=== PATIENT | female | born 2000 | race African-American/Black ===

== ENCOUNTER 2024-07-25 19:00 | Observation (INO) | payer BC, SELFPAY ==
--- NOTE | ~2024-07-25 | XR_ITS ---
EXAMINATION: XR chest 2V DATE: 07/25/2024 19:29 INDICATION: Cough and chest pain. Shortness of breath. TECHNIQUE: Frontal and lateral views of the chest were obtained. COMPARISON: None. FINDINGS: There are airspace opacities in left lower lobe, consistent with pneumonia. No pleural effu marcela or pneumothorax. The heart size is normal. IMPRESSION: 1. Left lower lobe pneumonia. Reviewed, dictated and finalized at location A.
--- NOTE | 2024-07-25 19:10 | ECG_ITS ---
Test Date: 2024-07-25 19:16:54 Measurements Intervals [place] Rate: 139 P: 31 AK: 159 QRS: 46 QRSD: 82 T: 16 QT: 329 QTc: 501 Interpretive Statements SINUS TACHYCARDIA ANTERIOR MYOCARDIAL INFARCTION , OF INDETERMINATE AGE [30 ms Q WAVE IN V3/V4, OR R < 0.2 mV IN V4] No previous ECG available for comparison Electronically Signed On 07-25-2024 21:42:54 CDT by Omi Lepe M.D.
[2024-07-25 19:11] VITALS: BP 154/114; PULSE 142; RESP 16; TEMP 37; O2SAT 96
[2024-07-25 19:44] LABS: Basophils Percent Auto 0.4 % (0.2-1.2); Hematocrit 43.6 % (37.0-47.0); Hemoglobin 14.5 g/dL (12.0-15.0); Immature Granulocyte Absolute 0.04 K/mm3 (0.00-0.031); Immature Granulocyte Percent A 0.4 % (0-0.5); Lymphocytes Absolute Auto 2.05 K/mm3 (0.9-3.2); Lymphocytes Percent Auto 21.4 % (18.3-44.2); Mean Corpuscular HGB Conc 33.3 g/dl (32-36); Mean Corpuscular Volume 84.3 fl (80-100); Mean Platelet Volume 9.9 fl (7.4-10.4); Monocytes Absolute Auto 1.5 K/mm3 (0.1-0.6); Monocytes Percent Auto 15.6 % (2.6-8.5); Neutrophils Percent Auto 62.2 % (45.5-73.1); Platelet Count Result 343 k/mm3 (150-375); Red Blood Count 5.17 M/mm3 (4.2-5.4); Red Cell Distribution Width 13.2 % (11.5-14.5); White Blood Count 9.6 K/mm3 (4.5-10.0)
[2024-07-25 19:54] LABS: Alanine Aminotransferase 28 U/L (6-35); Albumin Level 4.7 g/dL (3.5-5.1); Alkaline Phosphatase 38 U/L (38-126); Anion Gap 10 mmol/L (4-12); Aspartate Amino Transferase 32 U/L (14-36); Bilirubin,Total 0.3 mg/dL (0.2-1.3); Blood Urea Nitrogen 9 mg/dL (7-17); Calcium 9.5 mg/dL (8.4-10.2); Carbon Dioxide 30 mmol/L (22-30); Chloride 97 mmol/L (98-107); Estimated CRCL calculation 72 ml/min; Estimated Glomerular Filt Rate > 60; Glucose 97 mg/dL (65-110); Lipase 53 U/L (23-300); Potassium 3.7 mmol/L (3.4-5.0); Prothrombin Time 13.9 Seconds (11.1-14.7); Sodium 137 mmol/L (137-145)
[2024-07-25 19:55] LABS: Partial Thromboplastin Time 31.6 Seconds (22.3-36.8)
[2024-07-25 20:06] LABS: Troponin I < 0.012 ng/mL (0.000-0.034)
[2024-07-25 21:47] VITALS: BP 134/97; PULSE 133; RESP 27; O2SAT 98
[2024-07-25 21:55] VITALS: PULSE 134; RESP 29; O2SAT 97
[2024-07-25 22:01] VITALS: BP 143/96; PULSE 128; RESP 27; O2SAT 99
[2024-07-25 22:05] VITALS: O2SAT 99
[2024-07-25] MEDS: SODIUM CHLORIDE 0.9% IV 1,000 ML 999 ML IV CONT (22:06)
[2024-07-25] MEDS: Please add drug allergy info to patient profile. 1 EACH XX (22:06)
[2024-07-25] MEDS: BENZONATATE 100 MG CAPSULE 200 MG PO (22:06)
--- NOTE | 2024-07-25 22:30 | ECG_ITS ---
Test Date: 2024-07-25 22:36:50 Measurements Intervals [place] Rate: 119 P: 30 MD: 181 QRS: 15 QRSD: 82 T: 10 QT: 422 QTc: 595 Interpretive Statements SINUS TACHYCARDIA LEFT ATRIAL ABNORMALITY PROLONGED QT INTERVAL ABNORMAL RHYTHM ECG Compared to ECG 07/25/2024 19:16:54 Myocardial infarct finding no longer present Electronically Signed On 07-26-2024 12:01:42 CDT by Omi Lepe M.D.
[2024-07-25 22:31] VITALS: BP 145/98; PULSE 125; RESP 38; TEMP 38; O2SAT 100
[2024-07-25 23:04] LABS: Troponin I < 0.012 ng/mL (0.000-0.034)
--- NOTE | 2024-07-25 23:40 | ED.GENADULT ---
HPI - General Adult General Chief complaint: Chest Pain Stated complaint: chest pain, covid on 07/10 Time Seen by Provider: 07/25/24 21:48 History of Present Illness HPI narrative: Patient is a 21-year-old female who presents emergency department with chief complaint of chest pain and cough. The patient reports that she had COVID on the 10 of July patient reports that she was doing better symptoms have essentially resolved in last 2 days she started having a cough that was productive of phlegm the patient reports that a since she has felt some heart strain receive has not been eating and drinking very much and reports she has had a fever. Related Data Allergies Allergy/AdvReac Type Severity Reaction Status Date / Time oxycodone Allergy Anaphylaxis Verified 07/25/24 21:46 Review of Systems Review of Systems: A 10 system review of systems was completed on the patient and is negative except for what is stated in the HPI. Nursing and ancillary documentation was reviewed. Exam Narrative: GENERAL: Well-appearing, well-nourished, and in no acute distress. HEAD: Normocephalic, atraumatic. EYES: PERRLA and EOMI. ENT: Nares clear, no rhinorrhea or epistaxis. Mucous membranes moist. NECK: Supple. CHEST: Clear to auscultation. No respiratory distress. HEART: Tachycardic rate and rhythm. No murmur heard. Normal peripheral pulses. ABDOMEN: Soft, nontender, nondistended, normal active bowel sounds. EXTREMITIES: Normal range of motion. No edema. SKIN: Warm, dry, no rash. NEURO: No focal deficits. Alert and oriented x3. PSYCH: Normal mood and affect. Course Vital Signs Vital signs: Vital Signs Temperature 37.0 C 07/25/24 19:11 Pulse Rate 142 H 07/25/24 19:11 Respiratory Rate 16 07/25/24 19:11 Blood Pressure 154/114 H 07/25/24 19:11 Pulse Oximetry 96 07/25/24 19:11 Oxygen Delivery Room Air 07/25/24 19:11 Temperature 38.0 C H 07/25/24 22:31 Pulse Rate 125 H 07/25/24 22:31 Respiratory Rate 38 H 07/25/24 22:31 Blood Pressure 145/98 H 07/25/24 22:31 Pulse Oximetry 100 07/25/24 22:31 Oxygen Delivery Room Air 07/25/24 22:05 Medical Decision Making [facility] Narrative Medical decision making narrative: Differential diagnosis includes pneumonia, electrolyte abnormality, dehydration Patient is initial EKG showed no acute ischemic changes it shows sinus tachycardia. Chest x-ray showed left lower lobe infiltrate Laboratory studies showed normal CBC CMP showed no significant abnormalities troponin was 0 hour and 3 hour The patient received fluid resuscitation the emergency department and has been still persistently tachycardic with heart rate 120s. Patient started on Rocephin and Zithromax blood cultures were obtained and patient will be admitted for observation. Vital Signs Vital Signs: Vital Signs Temperature 37.0 C 07/25/24 19:11 Pulse Rate 142 H 07/25/24 19:11 Respiratory Rate 16 07/25/24 19:11 Blood Pressure 154/114 H 07/25/24 19:11 Pulse Oximetry 96 07/25/24 19:11 Oxygen Delivery Room Air 07/25/24 19:11 Temperature 38.0 C H 07/25/24 22:31 Pulse Rate 125 H 07/25/24 22:31 Respiratory Rate 38 H 07/25/24 22:31 Blood Pressure 145/98 H 07/25/24 22:31 Pulse Oximetry 100 07/25/24 22:31 Oxygen Delivery Room Air 07/25/24 22:05 Lab Data 07/25/24 19:37 07/25/24 19:37 Labs: Lab Results 07/25/24 07/25/24 Range/Units 19:37 22:37 WBC 9.6 (4.5-10.0) K/mm3 RBC 5.17 (4.2-5.4) M/mm3 Hgb 14.5 (12.0-15.0) g/dL Hct 43.6 (37.0-47.0) % MCV 84.3 (80-100) fl MCH 28.0 (26-34) pg MCHC 33.3 (32-36) g/dl RDW 13.2 (11.5-14.5) % Plt Count 343 (150-375) k/mm3 MPV 9.9 (7.4-10.4) fl Immature Gran % (Auto) 0.4 (0-0.5) % Neut % (Auto) 62.2 (45.5-73.1) % Lymph % (Auto) 21.4 (18.3-44.2) % [place] % (Auto) 15.6 H (2.6-8.5) % Eos % (Auto) 0.0 (0-4.4) % Baso % (Au
--- NOTE | 2024-07-25 23:47 | PM.IMHP ---
H&P: HPI History of Present Illness Date/Time: 07/25/24 23:47 Chief Complaint: Cough, fever chills, shortness breast Narrative: Patient is a 21-year-old female with recent history of COVID infection diagnosed on July 10 present ED with a chief complaint of cough, fever and chills and shortness of breath, that started about 2 days ago. Patient has a worsening cough today patient also developed general weakness. Patient also has chest pain with deep breath and cough. Patient had nausea vomiting yesterday. Denies diarrhea. Patient has some headache, denies photophobia, vision change. Patient came to ED for evaluation. Upon arrival in the ED, patient was found have fever 100.4, tachycardia 125, tachypnea 138, pulse ox 99 on room air, white blood cell 9600, neutrophil left shift, 15.6%. Troponin negative. EKG shows sinus rhythm, tachycardia 119, no specific ST or T-wave changes. X-ray showed left lower lobe pneumonia. Patient received antibiotics in the ED. we admit patient for further evaluation treatment Review of Systems Review of Systems: ROS negative except above PMFSH Social History Social History Smoking status: Never smoker Alcohol intake: current Drinks per week: 1 Substance use: never Substance use type: does not use Do You Feel Safe in your Home?: Yes Lack of Transportation: No Lack of Food: Never True Current Housing: I Have Housing Concerned About Future Housing: No Difficulty Paying Gas/Electric Bills: No Difficulty Paying for Meds: No Currently Unemployed: No Education: Associate Degree Difficulty w/ Childcare or Family Care: No Spiritual care concerns: No Meds Home Medications and Allergies Home Medications Medication Instructions Recorded Confirmed Type berberine chloride 500 mg capsule 500 mg PO BID 07/26/24 07/26/24 History cholecalciferol (vitamin D3) 125 125 mcg PO DAILY 07/26/24 07/26/24 History mcg (5,000 unit) tablet (Vitamin D3) norgestimate 0.25 mg-ethinyl 1 tablet PO DAILY 07/26/24 07/26/24 History estradiol 35 mcg tablet (Sprintec (28)) Allergies Allergy/AdvReac Type Severity Reaction Status Date / Time oxycodone Allergy Anaphylaxis Verified 07/25/24 21:46 Vital Signs Vital Signs - 24 hr 07/25/24 19:11 07/25/24 21:44 07/25/24 21:47 Temperature 98.6 F Pulse Rate 142 H 133 H Respiratory Rate 16 27 H Blood Pressure 154/114 H 134/97 H Pulse Oximetry 96 98 Oxygen Delivery Room Air Room Air 07/25/24 22:01 07/25/24 22:05 07/25/24 21:55 Temperature Pulse Rate 128 H 134 H Respiratory Rate 29 H Blood Pressure Pulse Oximetry 99 97 Oxygen Delivery Room Air 07/25/24 22:01 07/25/24 22:31 Temperature 100.4 F H Pulse Rate 125 H Respiratory Rate 27 H 38 H Blood Pressure 143/96 H 145/98 H Pulse Oximetry 99 100 Oxygen Delivery Exam Narrative: GENERAL: Pleasant, in no acute distress. Well-nourished. - EYES: EOMI. Anicteric. - HENT: Moist mucous membranes. - LUNGS: Clear to auscultation bilaterally, tachypnea, coarse breath sound neb lower based - CARDIOVASCULAR: Regular rate and rhythm. No murmur. No JVD. Tachycardia - ABDOMEN: Soft, non-tender and non-distended. No palpable masses. - EXTREMITIES: No edema. Peripheral pulses 2+. Non-tender. - NEUROLOGIC: No focal neurological deficits. CN II-XII grossly intact. - PSYCHIATRIC: Awake, Alert and oriented x 3. Appropriate mood and affect. - SKIN: No rashes or lesions. Warm. - LYMPH: No cervical lymphadenopathy. H&P: Results Labs Labs: Short CBC 07/25/24 Range/Units 19:37 WBC 9.6 (4.5-10.0) K/mm3 Hgb 14.5 (12.0-15.0) g/dL Hct 43.6 (37.0-47.0) % Plt Count 343 (150-375) k/mm3 [facility] 07/25/24 19:37 Sodium 137 Potassium 3.7 Chloride 97 L Carbon Dioxide 30 BUN 9 Creatinine 1.00 Glucose 97 Calcium 9.5 Cardiac Enzymes
[2024-07-25] MEDS: ACETAMINOPHEN 325 MG TABLET 650 MG PO (23:59)
[2024-07-25] MEDS: SODIUM CHLORIDE 0.9% IV 1,000 ML 125 ML IV CONT (23:59)
[2024-07-26] VITALS (15 sets, daily range): BP systolic 111–131; BP diastolic 59–85; PULSE 89–127; RESP 16–22; TEMP 36.4–37.9; O2SAT 94–99; BMI 33.8
[2024-07-26] MEDS: AZITHROMYCIN 500 MG/NS 250 ML 500 MG/250 ML BAG 250 MG IVPB (00:56)
--- NOTE | 2024-07-26 01:10 | ADMGEN ---
This patient, Andrei Levin, was admitted to Medical Room 342-01. Patient/family oriented to hospital policies and general routines including ID bracelet, bed and alarms, visiting hours, pain management, procedures, bathroom and other care routines, personal items, smoking policy, room service/diet, and visiting hours. Information on how to activate the Rapid Response Team has been discussed. Patient/Family are encouraged to report perceived risks to care and to ask questions if they do not understand what they are told or what they should do.
[2024-07-26 01:43] LABS: Troponin I < 0.012 ng/mL (0.000-0.034)
[2024-07-26] MEDS: IPRATROPIUM 0.5 MG/ALBUTEROL SULFATE 2.5 MG AMPUL.NEB 3 ML INHALATION ×2 (07:20→13:20)
[2024-07-26] MEDS: ENOXAPARIN 40 MG/0.4 ML SYRINGE SUB-Q (08:45)
[2024-07-26] MEDS: ACETAMINOPHEN 325 MG TABLET 650 MG PO (08:49)
[2024-07-26] MEDS: SODIUM CHLORIDE 0.9% IV 1,000 ML 125 ML IV CONT (08:51)
[2024-07-26 09:49] LABS: Basophils Percent Auto 0.4 % (0.2-1.2); Eosinophils Percent Auto 0.1 % (0-4.4); Hematocrit 41.4 % (37.0-47.0); Hemoglobin 13.7 g/dL (12.0-15.0); Immature Granulocyte Absolute 0.03 K/mm3 (0.00-0.031); Immature Granulocyte Percent A 0.4 % (0-0.5); Lymphocytes Absolute Auto 1.87 K/mm3 (0.9-3.2); Mean Corpuscular HGB Conc 33.1 g/dl (32-36); Mean Corpuscular Hemoglobin 28.4 pg (26-34); Mean Corpuscular Volume 85.9 fl (80-100); Monocytes Absolute Auto 1.1 K/mm3 (0.1-0.6); Monocytes Percent Auto 13.9 % (2.6-8.5); Neutrophils Absolute Auto 4.8 K/mm3 (1.3-6.7); Neutrophils Percent Auto 61.2 % (45.5-73.1); Platelet Count Result 304 k/mm3 (150-375); Red Blood Count 4.82 M/mm3 (4.2-5.4); Red Cell Distribution Width 13.3 % (11.5-14.5); White Blood Count 7.8 K/mm3 (4.5-10.0)
[2024-07-26 10:01] LABS: Lactic Acid Reflex 1.2 mmol/L (0.7-2.0)
[2024-07-26 10:02] LABS: Alanine Aminotransferase 23 U/L (6-35); Albumin Level 4.3 g/dL (3.5-5.1); Alkaline Phosphatase 39 U/L (38-126); Anion Gap 8 mmol/L (4-12); Aspartate Amino Transferase 26 U/L (14-36); Bilirubin,Total 0.4 mg/dL (0.2-1.3); Blood Urea Nitrogen 8 mg/dL (7-17); Calcium 8.5 mg/dL (8.4-10.2); Carbon Dioxide 27 mmol/L (22-30); Chloride 103 mmol/L (98-107); Estimated CRCL calculation 101 ml/min; Estimated Glomerular Filt Rate > 60; Glucose 101 mg/dL (65-110); Potassium 3.5 mmol/L (3.4-5.0); Sodium 138 mmol/L (137-145)
--- NOTE | 2024-07-26 16:12 | PM.DS ---
DS: Admitting Diagnosis Discharge Date 07/26/2024 Admitting Diagnosis Fever, and SOB. DS: Summary Hospital Course Hospital Course: Patient is a 21-year-old female with recent history of COVID infection diagnosed on July 10 present ED with a chief complaint of cough, fever and chills and shortness of breath, that started about 2 days ago. Patient has a worsening cough today patient also developed general weakness. Patient also has chest pain with deep breath and cough. Patient had nausea vomiting yesterday. Denies diarrhea. Patient has some headache, denies photophobia, vision change. Patient came to ED for evaluation. Upon arrival in the ED, patient was found have fever 100.4, tachycardia 125, tachypnea 138, pulse ox 99 on room air, white blood cell 9600, neutrophil left shift, 15.6%. Troponin negative. EKG shows sinus rhythm, tachycardia 119, no specific ST or T-wave changes. X-ray showed left lower lobe pneumonia. Patient received antibiotics in the ED. we admit patient for further evaluation treatment Patient received Rocephin and Azithromycin, and IVF vitals sign within normal limits. No leukocytosis and patient is eating and self ambulating freely. Discharged on 6 more days of Levaquin. F/u with PCP in 3-5 days Assessment and plan (1) Community acquired pneumonia: Code(s): J18.9 - Pneumonia, unspecified organism Status: Acute (2) Sepsis: Code(s): A41.9 - Sepsis, unspecified organism Status: Acute Plan Community-acquired pneumonia Patient is a cough, fever, chills, pleuritic chest pain associated with deep breath and cough, troponin negative, EKG shows sinus tachycardia X-ray shows left lower lobe pneumonia s/p Rocephin and Azithromycin. Discharged on 6 more days of Levaquin Sepsis, resolved vital signs within normal limites S/p IVf and Rocephin adn Azithromycin continue above care plan F/u wit PCP in 3-5 days Time Spent with Patient Time attestation: Total time spent providing and/or coordinating discharge services: DS: Data Data Completed and Pending Labs on day of discharge: Labs from last 24 hours 07/26/24 07/26/24 07/25/24 09:40 01:15 22:37 WBC 7.8 RBC 4.82 Hgb 13.7 Hct 41.4 MCV 85.9 MCH 28.4 MCHC 33.1 RDW 13.3 Plt Count 304 MPV 10.0 Immature Gran % (Auto) 0.4 Neut % (Auto) 61.2 Lymph % (Auto) 24.0 [place] % (Auto) 13.9 H Eos % (Auto) 0.1 Baso % (Auto) 0.4 Lymph # (Auto) 1.87 [place] # (Auto) 1.1 H Eos # (Auto) 0.0 Baso # (Auto) 0.0 Abs Immat Gran (auto) 0.03 Absolute Neuts (auto) 4.8 Absolute Nucleated RBC 0.000 Nucleated RBC % 0.0 PT INR APTT Sodium 138 Potassium 3.5 Chloride 103 Carbon Dioxide 27 Anion Gap 8 BUN 8 Creatinine 0.70 Estim Creat Clear Calc 101 Estimated GFR > 60 Glucose 101 Lactic Acid 1.2 Calcium 8.5 Magnesium 2.0 Total Bilirubin 0.4 AST 26 ALT 23 Alkaline Phosphatase 39 Troponin I < 0.012 < 0.012 Total Protein 8.0 Albumin 4.3 Lipase 07/25/24 19:37 WBC 9.6 RBC 5.17 Hgb 14.5 Hct 43.6 MCV 84.3 MCH 28.0 MCHC 33.3 RDW 13.2 Plt Count 343 MPV 9.9 Immature Gran % (Auto) 0.4 Neut % (Auto) 62.2 Lymph % (Auto) 21.4 [place] % (Auto) 15.6 H Eos % (Auto) 0.0 Baso % (Auto) 0.4 Lymph # (Auto) 2.05 [place] # (Auto) 1.5 H Eos # (Auto) 0.0 Baso # (Auto) 0.0 Abs Immat Gran (auto) 0.04 H Absolute Neuts (auto) 6.0 Absolute Nucleated RBC 0.000 Nucleated RBC % 0.0 PT 13.9 INR 1.0 APTT 31.6 Sodium 137 Potassium 3.7 Chloride 97 L Carbon Dioxide 30 Anion Gap 10 BUN 9 Creatinine 1.00 Estim Creat Clear Calc 72 Estimated GFR > 60 Glucose 97 Lactic Acid Calcium 9.5 Magnesium Total Bilirubin 0.3 AST 32 ALT 28 Alkaline Phosphatase 38 Troponin I < 0.012 Total Protein 9.0 H Albumin 4.7 Lipase 53 Discharge Lory
[2024-07-26] MEDS: INFLUENZA TRIVALENT VACCINE 45 MCG/0.5 ML SYRINGE IM (16:29)
== END 2024-07-26 16:37 | disposition home or self-care (01) ==
LOC: ANHED 23:45 → ANH3MED 07-26 16:12
PROVIDERS: Admitting Provider Hospitalist; Emergency Provider Emergency Medicine; Visit Provider Internal Medicine
DX: A41.9 Sepsis, unspecified organism (principal); J18.9 Pneumonia, unspecified organism; Z86.16 Personal history of COVID-19; Z23 Encounter for immunization
CPT/HCPCS: 36415; 71046; 80053; 83605; 83690; 83735; 84484; 85025; 85610; 85730; 87040; 90471; 90656; 93005; 94640; 96361; 96365; 96367; 96372; 99285; A9270; G0008; G0378; J0456; J0696; J1650; J7030

== ENCOUNTER 2025-04-03 22:04 | Emergency (ER) | payer SELFPAY ==
--- NOTE | ~2025-04-03 | CT_ITS ---
CT of the Abdomen and Pelvis: Indication: Abdominal pain Technique: 2.5 mm axial scans were obtained through the abdomen and pelvis following intravenous adm inistration of 100 cc of Omnipaque 350. Dose reduction technique was used on this scan by utilizing a utomated exposure control and iterative reconstruction technique. The dose-length product (DLP) was 5 96.94 mGy-cm. Findings: Scans through the lung bases are unremarkable. The liver, spleen, pancreas, gallbladder, adrenals and kidneys are within normal limits. No evidence of aortic aneurysm. No lymphadenopathy. No bowel obstruction or bowel wall thickening. There is no evidence to suggest acute appendicitis. Images through the pelvis were performed. There is prominent appearance of both ovaries versus exophy tic fibroids, measuring 4.3 cm on the right, and 4 cm anteriorly/the left. Impression: Suspected exophytic fibroid versus prominent appearance of both ovaries, as detailed above. Consider pelvic ultrasound to further evaluate. Reviewed, dictated and finalized at [facility]. Impression: Suspected exophytic fibroid versus prominent appearance of both ovaries, as det peter above. Consider pelvic ultrasound to further evaluate.
[2025-04-03 22:06] VITALS: BP 149/90; PULSE 86; RESP 16; TEMP 36.5; O2SAT 99
--- OUTSIDE RECORDS SUMMARY | 2025-04-03 22:07 | XMS_ITS | Clinical Summary ---
Author Organization [facility] Address [address] [place] [address] Care Team Providers Care Firer Tunnel Kiln Name Role Phone Jaylene Tee NP Primary Care Provider Allergies Active Allergy Reactions Criticality Noted Date Comments Oxycodone Itching,Swelling Medium 08/20/2021 Social History Tobacco Use Types Packs/Day Years Used Date Smoking Tobacco: Never Assessed Personal Safety Answer Date Recorded Getting School Help Needed Not on file 12/17 Comments Unknown Sex and Gender Information Value Date Recorded Sex Assigned at Not on file Legal Sex Female 1:08 AM [employer]ANGU[employer] PATH Gender Identity Not on file Sexual Orientation Not on file Last Filed Vital Signs Vital Sign Reading Time Taken Comments Blood Pressure 126/81 11/21/2022 1:54 PM [employer]ANGUAGE [employer] Pulse 75 11/21/2022 1:54 PM [employer] Temperature 37 C (98.6 F) 11/21/2022 12:07 PM [employer]ANGU[employer] Respiratory Rate 18 11/21/2022 1:54 PM [employer] Oxygen Saturation 98% 11/21/2022 1:54 PM [employer]ANG[employer] Inhaled Oxygen Concentration - - Weight 77.5 kg (170 lb 13.7 oz) 023 12:07 PM [employer] Height 152.4 cm (5') 11/21/2022 12:07 PM [employer] Body Mass Index 33.37 11/21/2022 12:07 PM [employer]ANGU[employer] PATH Plan of Treatment Health Maintenance Due Date Last Done Comments Cervical Cancer Screening 2001 Depression Screening 2001 Hepatitis C Screening 2001 DTaP/Tdap/Td Vaccine (1 - Tdap) 2012 Varicella Vaccines (1 of 2 - 13+ 2-dose series) 2014 HPV Vaccines (1 - 3-dose series) 2016 Meningococcal B Vaccine (1 o f 2 - Standard) 2017 Hepatitis B Screening 2019 Regular Well Visit/Exam 18-64 2019 Influenza Vaccine (Season Ended) 2025 Pneumococcal vaccine <65 Aged Out No longer eligible based on patient's age to complete this topic [place] [address] [employer] Address: [facility] [address] [place] [address] [facility] Care Teams Firer Tunnel Kiln Relationship Specialty Start Date End Date Jaylene Tee NP PCP - General Family Medicine 11/21/22
--- OUTSIDE RECORDS SUMMARY | 2025-04-03 22:07 | XMS_ITS | Referral Summary ---
Author Organization [facility] Address [address] [place] [address] Care Team Providers Care Quarry Boss Name Role Phone Jaylene Tee NP Primary [...] on file Legal Sex Female 1:08 AM [employer] Gender Identity Not on file Sexual Orientation Not on file Last Filed Vital Signs Vital Sign Reading Time Taken Comments Blood Pressure 126/81 11/21/2022 1:54 PM [employer] OP Pulse 75 11/21/2022 1:54 PM [employer] OP Temperature 37 C (98.6 F) 11/21/2022 12:07 PM [employer] OP Respiratory Rate 18 11/21/2022 1:54 PM [employer] OP Oxygen Saturation 98% 11/21/2022 1:54 PM [employer] OP Inhaled Oxygen Concentration - - Weight 77.5 kg (170 lb 13.7 oz) 023 12:07 PM [employer]ET[employer] OP Height 152.4 cm (5') 11/21/2022 12:07 PM [employer]ING [employer] OP Body Mass Index 33.37 11/21/2022 12:07 PM [employer]ETING [employer] OP Plan of Treatment Not on file [place] [address] [address] [facility] [employer] Address: [address] [place] [address] [place] [address] [facility] [place] [address] [facility] Care Teams Quarry Boss Relationship Specialty Start Date End Date Jaylene Tee NP PCP - General Family Medicine 11/21/22
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
--- OUTSIDE RECORDS SUMMARY | 2025-04-03 22:55 | XMS_ITS | Clinical Summary ---
Author Organization [facility] Address [address] 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 Gender Identity Not on file Sexual Orientation Not on file Last Filed Vital Signs Vital Sign Reading Time Taken Comments Blood Pressure 126/81 11/21/2022 1:54 PM WHITE SHOE RAGGER Pulse 75 11/21/2022 1:54 PM WHITE SHOE RAGGER Temperature 37 C (98.6 F) 11/21/2022 12:07 PM WHITE SHOE RAGGER Respiratory Rate 18 11/21/2022 1:54 PM WHITE SHOE RAGGER Oxygen Saturation 98% 11/21/2022 1:54 PM WHITE SHOE RAGGER Inhaled Oxygen Concentration - - Weight 77.5 kg (170 lb 13.7 oz) 023 12:07 PM WHITE SHOE RAGGER Height 152.4 cm (5') 11/21/2022 12:07 PM WHITE SHOE RAGGER Body Mass Index 33.37 11/21/2022 12:07 PM WHITE SHOE RAGGER Plan of Treatment Health Maintenance Due Date [...] patient's age to complete this topic [place] [address] [place] [address] [employer] Address: [facility] [id number] [place] [address] [facility] MEDICAID [facility] Care Teams Secondary School Principal Relationship Specialty Start Date End Date Jaylene Tee NP PCP - General Family Medicine 11/21/22
--- OUTSIDE RECORDS SUMMARY | 2025-04-03 22:55 | XMS_ITS | Clinical Summary ---
Author Organization [facility] Address [address] [place] [address] Care Team Providers Care Restaurant Hourly Manager Name Role Phone Pablo Humphries MD Primary Care Provider [phone] Source Comments [facility] [employer],non-owned Affiliates and Associated Physician Practices is amultiple site organization consisting of ambulatory clinics and hospital sitesin [place], [place], [place] and [place]. This disclosure is being madepursuant to the Care Everywhere program and may not contain all information available regarding this patient. Last updated 18.[facility] [employer] Allergies No known active allergies Medications * Be aware that medications may not be up to date on this document. Alwaysverify current medications with the patient. acetaminophen (TYLENOL) 325 MG tablet Take 2 tablets by mouth every 6 hours as needed for Fever or Pain Maximum allowable Acetaminophen amount = 4 Grams (4000 mg) / 24 hours. 60 tablet 1 0 Active ibuprofen (MOTRIN) 600 MG tablet Take 1 tablet by mouth every 6 hours as needed for Pain 60 tablet 1 0 Active traMADol (ULTRAM) 50 MG tabletIndicati ons:Post-tonsi llectomy pain Take 1 tablet by mouth every 6 hours as needed for Pain 12 tablet 0 Active Active Problems No known active problems Social History Tobacco Use Types Packs/Day Years Used Date Smoking Tobacco: Never Smokeless Tobacco: Never Alcohol Use Standard Drinks/Week Comments Never 0 (1 standard drink = 0.6 oz pur e alcohol) AUDIT-C Answer Date Recorded Q1: How often do you have a drink containing alc ohol? Never 07/29/2020 Average Number of Drinks Not on file 020 Frequency of Binge Drinking Not on file 03/2020 Comments No Sex and Gender Information Value Date Recorded Sex Assigned at Not on file Legal Sex Female 11:17 AM CDT Gender Identity Not on file Sexual Orientation Not on file Last Filed Vital Signs Vital Sign Reading Time Taken Comments Blood Pressure 131/96 08/19/2020 10:45 AM CDT Pulse 88 08/19/2020 10:46 AM CDT Temperature 36.9 C (98.4 F) 08/26/2020 1:28 PM VICE PRESIDENT MEDICAL AFFAIRS Respiratory Rate 27 08/19/2020 10:46 AM CDT Oxygen Saturation 99% 08/19/2020 10:46 AM CDT Inhaled Oxygen Concentration - - Weight 70.3 kg (155 lb) 08/26/2020 1:28 PM [facility] PRES[facility] AFFAIRS Height 152.4 cm (5') 08/26/2020 1:28 PM [facility] AFFAIRS Body Mass Index 30.27 08/26/2020 1:28 PM VICE PRESIDENT [employer] AFFAIRS Plan of Treatment Health Maintenance Due Date Last Done Comments HIV SCREENING 2016 HPV VACCINE (1 - 3-dose series) 2016 CHLAMYDIA/GONORRHEA SCREENING 2017 MENINGOCOCCAL (Group B) VACC INE SHARED DECISION-MAKING (1 of 2 - Standard) 2017 HEPATITIS C SCREENING 11/09/2019 DTAP/TDAP/TD VACCINES (1 - Tdap) 2020 HEPATITIS B VACCINE (1 of 3 - 19+ 3-dose series) 2020 COVID-19 VACCINE (1 - 2023-2 5 season) 2024 DEPRESSION SCREENING 10/24/2024 INFLUENZA VACCINE (Season Ended) 2025 ZOSTER VACCINE (1 of 2) 2051 HIB VACCINE Aged Out No longer eligi ble based on patient's age to complete this topic MENINGOCOCCAL GROUPS A/C/Y/W VACCINE Aged Out No longer eligible b ased on patient's age to complete this topic PNEUMOCOCCAL VACCINE Aged Out No long er eligible based on patient's age to complete this topic Insurance [facility] Care Teams Restaurant Hourly Manager Relationship Specialty Start Date End Date Pablo Humphries MD [facility] [address] [address] PCP - General 07/24/20
--- OUTSIDE RECORDS SUMMARY | 2025-04-03 22:55 | XMS_ITS | Referral Summary ---
Author Organization [facility] Address [address] [place] [address] Care Team Providers Care Forensic Engineer Name Role Phone Jaylene Tee NP Primary [...] on file Legal Sex Female 1:08 AM HEATING PLANT SUPERINTENDENT Gender Identity Not on file Sexual Orientation Not on file Last Filed Vital Signs Vital Sign Reading Time Taken Comments Blood Pressure 126/81 11/21/2022 1:54 PM HEATING PLANT SUPERINTENDENT Pulse 75 11/21/2022 1:54 PM HEATING PLANT SUPERINTENDENT Temperature 37 C (98.6 F) 11/21/2022 12:07 PM HEATING PLANT SUPERINTENDENT Respiratory Rate 18 11/21/2022 1:54 PM HEATING PLANT SUPERINTENDENT Oxygen Saturation 98% 11/21/2022 1:54 PM HEATING PLANT SUPERINTENDENT Inhaled Oxygen Concentration - - Weight 77.5 kg (170 lb 13.7 oz) 023 12:07 PM HEATING PLANT SUPERINTENDENT Height 152.4 cm (5') 11/21/2022 12:07 PM HEATING PLANT SUPERINTENDENT Body Mass Index 33.37 11/21/2022 12:07 PM HEATING PLANT SUPERINTENDENT Plan of Treatment Not on file [place] [address] [facility] [employer] PL[employer] Address: [address] [place] [address] [place] [address] [facility] [place] [address] [facility] Care Teams Forensic Engineer Relationship Specialty Start Date End Date Jaylene Tee NP PCP - General Family Medicine 11/21/22
--- NOTE | 2025-04-04 00:11 | ECG_ITS ---
Test Date: 2025-04-04 02:09:20 Measurements Intervals [place] Rate: 78 P: 47 TN: 175 QRS: 45 QRSD: 94 T: 53 QT: 356 QTc: 407 Interpretive Statements SINUS RHYTHM WITH MARKED SINUS ARRHYTHMIA POOR R WAVE PROGRESSION BASELINE ARTIFACT- I, II, III, AVR, AVL, AVF, V1-V2 BORDERLINE ECG Compared to ECG 07/25/2024 22:36:50 HEART RATE HAS DECREASED Prolonged QT interval no longer present Electronically Signed On 04-04-2025 05:48:52 CDT by Alen Adan D.O.
[2025-04-04 00:30] LABS: Add Urine Microscopic? NO; Appearance Urine Clear (Clear); Bilirubin Urine Negative (Negative); Blood Urine Negative (Negative); Color Urine Yellow (Yellow); Glucose Urine UA Negative (Negative); Ketones Urine Negative (Negative); Leukocyte Esterase Ur Negative LEU/UL (Negative); Nitrate Urine Negative (Negative); Protein Urine Negative (Negative); Urobilinogen Urine 0.2 mg/dL (<2.0); pH Urine 7.5 (5.0-9.0)
[2025-04-04 00:31] LABS: Basophils Percent Auto 0.4 % (0.2-1.2); Eosinophils Absolute Auto 0.1 K/mm3 (0-0.3); Eosinophils Percent Auto 1.2 % (0-4.4); Hemoglobin 13.7 g/dL (12.0-15.0); Immature Granulocyte Absolute 0.01 K/mm3 (0.00-0.031); Immature Granulocyte Percent A 0.1 % (0-0.5); Lymphocytes Absolute Auto 3.89 K/mm3 (0.9-3.2); Lymphocytes Percent Auto 56.6 % (18.3-44.2); Mean Corpuscular HGB Conc 32.6 g/dl (32-36); Mean Corpuscular Hemoglobin 27.8 pg (26-34); Mean Corpuscular Volume 85.4 fl (80-100); Mean Platelet Volume 10.6 fl (7.4-10.4); Monocytes Absolute Auto 0.6 K/mm3 (0.1-0.6); Monocytes Percent Auto 8.9 % (2.6-8.5); Neutrophils Absolute Auto 2.3 K/mm3 (1.3-6.7); Neutrophils Percent Auto 32.8 % (45.5-73.1); Platelet Count Result 341 k/mm3 (150-375); Red Blood Count 4.92 M/mm3 (4.2-5.4); Red Cell Distribution Width 13.8 % (11.5-14.5); White Blood Count 6.9 K/mm3 (4.5-10.0)
[2025-04-04 00:43] LABS: Alanine Aminotransferase 27 U/L (6-35); Albumin Level 4.5 g/dL (3.5-5.1); Alkaline Phosphatase 40 U/L (38-126); Anion Gap 8 mmol/L (4-12); Aspartate Amino Transferase 29 U/L (14-36); Bilirubin,Total 0.2 mg/dL (0.2-1.3); Blood Urea Nitrogen 15 mg/dL (7-17); Calcium 9.6 mg/dL (8.4-10.2); Carbon Dioxide 28 mmol/L (22-30); Chloride 102 mmol/L (98-107); Estimated CRCL calculation 88 ml/min; Estimated Glomerular Filt Rate > 60; Glucose 102 mg/dL (65-110); Lactic Acid Reflex 0.9 mmol/L (0.7-2.0); Lipase 180 U/L (23-300); Potassium 3.6 mmol/L (3.4-5.0); Sodium 138 mmol/L (137-145); Total Protein 7.7 g/dL (6.3-8.2)
[2025-04-04 00:53] LABS: Prothrombin Time 13.6 Seconds (11.1-14.7)
[2025-04-04 00:54] LABS: Partial Thromboplastin Time 27.4 Seconds (22.3-36.8)
[2025-04-04 01:05] LABS: BEDSIDEPREGUCG Negative (Negative)
--- NOTE | 2025-04-04 01:16 | ED_ITS ---
HPI - Abdominal Pain General Chief Complaint: Abdominal Pain Stated Complaint: R abd pain with pcos cyst dx Time Seen by Provider: 04/03/25 22:33 History of Present Illness HPI narrative: Patient is a 24-year-old female who presents to the ER with sudden onset abdominal pain. She reports she was in the shower when she felt something ?pop in her right groin. Patient endorses some vaginal spotting. She is unsure when her last menstrual period was, as she is irregular. Patient endorses a history of ovarian cysts, pneumonia, sepsis, and heart attack. She reports her last bowel movement was today and it was normal for her. Patient denies any urinary burning, chest pain, urinary urgency, or recent fevers. Related Data Home Medications ?Medication ?Instructions ?Recorded ?Confirmed ?Last Taken ?Type berberine chloride 500 mg capsule 500 mg PO BID 07/26/24 07/26/24 07/25/24 History cholecalciferol (vitamin D3) 125 125 mcg PO DAILY 07/26/24 07/26/24 07/25/24 History mcg (5,000 unit) tablet (Vitamin D3) norgestimate 0.25 mg-ethinyl 1 tablet PO DAILY 07/26/24 07/26/24 07/25/24 History estradiol 0.035 mg tablet (Sprintec (28)) Allergies Allergy/AdvReac Type Severity Reaction Status Date / Time oxycodone Allergy Anaphylaxis Verified 04/03/25 22:05 Review of Systems 2 Review of Systems: All systems reviewed & are unremarkable except as noted in HPI and below PMFSH Social History Social History Smoking status: Never smoker Alcohol intake: current Drinks per week: 1 Substance use: never Substance use type: does not use Do You Feel Safe in your Home?: Yes Lack of Transportation: No Lack of Food: Never True Current Housing: I Have Housing Concerned About Future Housing: No Difficulty Paying Gas/Electric Bills: No Difficulty Paying for Meds: No Currently Unemployed: No Education: Associate Degree Difficulty w/ Childcare or Family Care: No Spiritual care concerns: No Exam 2 Narrative: GENERAL: Well appearing, well-nourished, non-toxic, in no acute distress. HEAD: Normocephalic, atraumatic. NECK: Supple. No adenopathy, no masses. RESPIRATORY: Airway patent, respirations nonlabored. Clear to auscultation bilaterally, no rales, rhonchi, wheezing. CARDIOVASCULAR: Regular rate and rhythm without murmurs, rubs, or gallops. Peripheral pulses 2+ and equal bilaterally. ABDOMINAL: Soft, tender RLQ, nondistended, no hepatosplenomegaly. Normoactive BS. MUSCULOSKELETAL: Moves all extremities. Strength/ROM intact without gross deformities. SKIN: Warm, dry, normal color. No rashes. NEURO: A&O X3. Speech clear. Cranial nerves II-XII intact. No ataxic movements. PSYCHIATRIC: Appropriate mood and affect. Normal interaction. Course Vital Signs Vital signs: Vital Signs Temperature 36.5 C 04/03/25 22:06 Pulse Rate 86 04/03/25 22:06 Respiratory Rate 16 04/03/25 22:06 Blood Pressure 149/90 H 04/03/25 22:06 Pulse Oximetry 99 04/03/25 22:06 Oxygen Delivery Room Air 04/03/25 22:06 Temperature 36.5 C 04/03/25 22:06 Pulse Rate 97 04/04/25 05:38 Respiratory Rate 16 04/04/25 05:38 Blood Pressure 137/88 04/04/25 05:38 Pulse Oximetry 97 04/04/25 05:38 Oxygen Delivery Room Air 04/03/25 22:06 MDM - Abdominal Pain MDM Narrative Medical decision making narrative: Patient is a 24-year-old female who presents to the ER with sudden onset abdominal pain. She reports she was in the shower when she felt something ?pop in her right groin. Patient endorses some vaginal spotting. She is unsure when her last menstrual period was, as she is irregular. Patient endorses a history of ovarian cysts, pneumonia, sepsis, and heart attack. She reports her last bowel movement was today and it was normal for her. Patient denies any urinary burning, chest pain, urinary urgency, or recent fevers. Labs Ordered: CBC, CMP, lactic acid, PTT, INR, lipase, UA Imaging Ordered: CT abdomen pelvis Medications Ordered: None necessary (patient refused pain medication) Results: Patient's CBC was unremarkable for any acute abnormalities. Her coags and chemistry were also negative for any acute abnormalities. Patient's urinalysis was negative for any acute abnormalities. Her lactic acid was within normal limits. Diagnosis: lower abdominal pain Patient Education/Shared MDM: Results of lab work and imaging shared with patient. She continues to decline pain medication administration. Patient strongly advised to maintain hydration status upon discharge and follow-up with her PCP as soon as possible. She will be discharged home with no new prescriptions. Strict return precautions provided. Patient verbalized understanding and is in agreement with plan. Vital signs stable at time of discharge. All questions answered. Differential Diagnosis Differential diagnosis: Likely abdominal pain, acute appendicitis, constipation, gastroenteritis and small bowel obstruction Lab Data Attestation: I reviewed the patient's lab results. 04/04/25 00:21 04/04/25 00:21 Labs: Lab Results 04/04/25 04/04/25 Range/Units 00:21 01:03 WBC 6.9 (4.5-10.0) K/mm3 RBC 4.92 (4.2-5.4) M/mm3 Hgb 13.7 (12.0-15.0) g/dL Hct 42.0 (37.0-47.0) % MCV 85.4 (80-100) fl MCH 27.8 (26-34) pg MCHC 32.6 (32-36) g/dl RDW 13.8 (11.5-14.5) % Plt Count 341 (150-375) k/mm3 MPV 10.6 H (7.4-10.4) fl Immature Gran % (Auto) 0.1 (0-0.5) % Neut % (Auto) 32.8 L (45.5-73.1) % Lymph % (Auto) 56.6 H (18.3-44.2) % [place] % (Auto) 8.9 H (2.6-8.5) % Eos % (Auto) 1.2 (0-4.4) % Baso % (Auto) 0.4 (0.2-1.2) % Lymph # (Auto) 3.89 H (0.9-3.2) K/mm3 [place] # (Auto) 0.6 (0.1-0.6) K/mm3 Eos # (Auto) 0.1 (0-0.3) K/mm3 Baso # (Auto) 0.0 (0.0-0.1) K/mm3 Abs Immat Gran (auto) 0.01 (0.00-0.031) K/mm3 Absolute Neuts (auto) 2.3 (1.3-6.7) K/mm3 Absolute Nucleated RBC 0.000 (0.0-0.012) K/mm3 Nucleated RBC % 0.0 (0.0-0.2) % PT 13.6 (11.1-14.7) Seconds INR 1.0 APTT 27.4 (22.3-36.8) Seconds Sodium 138 (137-145) mmol/L Potassium 3.6 (3.4-5.0) mmol/L Chloride 102 (98-107) mmol/L Carbon Dioxide 28 (22-30) mmol/L Anion Gap 8 (4-12) mmol/L BUN 15 D (7-17) mg/dL Creatinine 0.80 (0.7-1.0) mg/dL Estim Creat Clear Calc 88 ml/min Estimated GFR > 60 (59 - ) Glucose 102 (65-110) mg/dL Lactic Acid 0.9 (0.7-2.0) mmol/L Calcium 9.6 (8.4-10.2) mg/dL Total Bilirubin 0.2 (0.2-1.3) mg/dL AST 29 (14-36) U/L ALT 27 (6-35) U/L Alkaline Phosphatase 40 (38-126) U/L Total Protein 7.7 (6.3-8.2) g/dL Albumin 4.5 (3.5-5.1) g/dL Lipase 180 (23-300) U/L Urine Color Yellow (Yellow) Urine Appearance Clear (Clear) Urine pH 7.5 (5.0-9.0) Ur Specific [place] 1.020 (1.001-1.035) Urine Protein Negative (Negative) mg/dL Urine Glucose (UA) Negative (Negative) mg/dL Urine Ketones Negative (Negative) mg/dL Ur Blood (Man) Negative (Negative) Urine Nitrate Negative (Negative) Urine Bilirubin Negative (Negative) Urine Urobilinogen 0.2 (<2.0) mg/dL Leukocyte Esterase Rfl Negative (Negative) UNA/UL POC Urine HCG, Qual Negative (Negative) Imaging Data Radiologist's impression: ITS Impressions Abdomen/Pelvis CT 04/04/25 05:24 Impression: Suspected exophytic fibroid versus prominent appearance of both ovaries, as detailed above. Consider pelvic ultrasound to further evaluate. Discharge Plan Discharge Clinical Impression: Abdominal pain, Ovarian cyst Patient Disposition: Home Condition: Stable Instructions: Antibiotic Form, Abdominal Pain (ED) Additional Instructions: Your found have a right sided ovarian cyst. Please follow-up with your OBGYN for further management. If you develop severe right lower quadrant pain, intractable nausea vomiting or any new or worsening symptoms please return to the ED for re-evaluation. You may use Tylenol and/or Ibuprofen for pain control at home. Patient Language: [place] Prescriptions: No Action norgestimate-ethinyl estradiol [Sprintec (28)] 0.25-35 mg-mcg tablet 1 tablet PO DAILY cholecalciferol (vitamin D3) [Vitamin D3] 125 mcg (5,000 unit) Tablet 125 mcg PO DAILY berberine chloride 500 mg Capsule 500 mg PO BID levofloxacin 750 mg tablet 750 mg PO DAILY 6 Days Qty: 6 0RF Follow-up/Referrals: Brett Sy DO [Physician] - (primary care provider) UNKNOWN,DOCTOR [Primary Care Provider] -
--- NOTE | 2025-04-04 05:28 | ED.GENADULT ---
HPI - General Adult General Chief complaint: Abdominal Pain Stated complaint: R abd pain with pcos cyst dx Time Seen by Provider: 04/03/25 22:33 Related Data Home Medications ?Medication ?Instructions ?Recorded ?Confirmed ?Last Taken ?Type berberine chloride 500 mg capsule 500 mg PO BID 07/26/24 07/26/24 07/25/24 History cholecalciferol (vitamin D3) 125 125 mcg PO DAILY 07/26/24 07/26/24 07/25/24 History mcg (5,000 unit) tablet (Vitamin D3) norgestimate 0.25 mg-ethinyl 1 tablet PO DAILY 07/26/24 07/26/24 07/25/24 History estradiol 0.035 mg tablet (Sprintec (28)) Allergies Allergy/AdvReac Type Severity Reaction Status Date / Time oxycodone Allergy Anaphylaxis Verified 04/03/25 22:05 [facility] Social History Social History Smoking status: Never smoker Alcohol intake: current Drinks per week: 1 Substance use: never Substance use type: does not use Do You Feel Safe in your Home?: Yes Lack of Transportation: No Lack of Food: Never True Current Housing: I Have Housing Concerned About Future Housing: No Difficulty Paying Gas/Electric Bills: No Difficulty Paying for Meds: No Currently Unemployed: No Education: Associate Degree Difficulty w/ Childcare or Family Care: No Spiritual care concerns: No Course Course Emergency Course: ZYCH: Patient signed out pending CT read. CT abdomen pelvis showed a 5 cm right ovarian cyst. Patient was evaluated bedside. She has no more abdominal pain. She did not have any severe pain or vomiting. No concern for torsion at this time. Patient has follow-up with her OBGYN later this month. This cyst will need repeat imaging in 6-12 months. This was relayed to the patient. Vital Signs Vital signs: Vital Signs Temperature 97.7 F 04/03/25 22:06 Pulse Rate 86 04/03/25 22:06 Respiratory Rate 16 04/03/25 22:06 Blood Pressure 149/90 H 04/03/25 22:06 Pulse Oximetry 99 04/03/25 22:06 Oxygen Delivery Room Air 04/03/25 22:06 Temperature 97.7 F 04/03/25 22:06 Pulse Rate 86 04/03/25 22:06 Respiratory Rate 16 04/03/25 22:06 Blood Pressure 149/90 H 04/03/25 22:06 Pulse Oximetry 99 04/03/25 22:06 Oxygen Delivery Room Air 04/03/25 22:06 Medical Decision Making Vital Signs Vital Signs: Vital Signs Temperature 97.7 F 04/03/25 22:06 Pulse Rate 86 04/03/25 22:06 Respiratory Rate 16 04/03/25 22:06 Blood Pressure 149/90 H 04/03/25 22:06 Pulse Oximetry 99 04/03/25 22:06 Oxygen Delivery Room Air 04/03/25 22:06 Temperature 97.7 F 04/03/25 22:06 Pulse Rate 86 04/03/25 22:06 Respiratory Rate 16 04/03/25 22:06 Blood Pressure 149/90 H 04/03/25 22:06 Pulse Oximetry 99 04/03/25 22:06 Oxygen Delivery Room Air 04/03/25 22:06 Lab Data 04/04/25 00:21 04/04/25 00:21 Labs: Lab Results 04/04/25 04/04/25 Range/Units 00:21 01:03 WBC 6.9 (4.5-10.0) K/mm3 RBC 4.92 (4.2-5.4) M/mm3 Hgb 13.7 (12.0-15.0) g/dL Hct 42.0 (37.0-47.0) % MCV 85.4 (80-100) fl MCH 27.8 (26-34) pg MCHC 32.6 (32-36) g/dl RDW 13.8 (11.5-14.5) % Plt Count 341 (150-375) k/mm3 MPV 10.6 H (7.4-10.4) fl Immature Gran % (Auto) 0.1 (0-0.5) % Neut % (Auto) 32.8 L (45.5-73.1) % Lymph % (Auto) 56.6 H (18.3-44.2) % Mower % (Auto) 8.9 H (2.6-8.5) % Eos % (Auto) 1.2 (0-4.4) % Baso % (Auto) 0.4 (0.2-1.2) % Lymph # (Auto) 3.89 H (0.9-3.2) K/mm3 Mower # (Auto) 0.6 (0.1-0.6) K/mm3 Eos # (Auto) 0.1 (0-0.3) K/mm3 Baso # (Auto) 0.0 (0.0-0.1) K/mm3 Abs Immat Gran (auto) 0.01 (0.00-0.031) K/mm3 Absolute Neuts (auto) 2.3 (1.3-6.7) K/mm3 Absolute Nucleated RBC 0.000 (0.0-0.012) K/mm3 Nucleated RBC % 0.0 (0.0-0.2) % PT 13.6 (11.1-14.7) Seconds INR 1.0 APTT 27.4 (22.3-36.8) Seconds Sodium 138 (137-145) mmol/L Potassium 3.6 (3.4-5.0) mmol/L Chloride 102 (98-107) mmol/L Carbon Dioxide 28 (22-30) mmol/L Anion Gap 8 (4-12) mmol/L BUN 15 D (7-17) mg/dL Creatinine 0.80 (0.7-1.0) mg/dL Estim Creat Clear Calc 88 ml/min Estimated GFR > 60 (59 - ) Glucose 102 (65-110) mg/dL Lactic Acid 0.9 (0.7-2.0) mmol/L Calcium 9.6 (8.4-10.2) mg/dL Total Bilirubin 0.2 (0.2-1.3) mg/dL AST 29 (14-36) U/L ALT 27 (6-35) U/L Alkaline Phosphatase 40 (38-126) U/L Total Protein 7.7 (6.3-8.2) g/dL Albumin 4.5 (3.5-5.1) g/dL Lipase 180 (23-300) U/L Urine Color Yellow (Yellow) Urine Appearance Clear (Clear) Urine pH 7.5 (5.0-9.0) Ur Specific [place] 1.020 (1.001-1.035) Urine Protein Negative (Negative) mg/dL Urine Glucose (UA) Negative (Negative) mg/dL Urine Ketones Negative (Negative) mg/dL Ur Blood (Man) Negative (Negative) Urine Nitrate Negative (Negative) Urine Bilirubin Negative (Negative) Urine Urobilinogen 0.2 (<2.0) mg/dL Leukocyte Esterase Rfl Negative (Negative) UNA/UL POC Urine HCG, Qual Negative (Negative) Discharge Plan Discharge Clinical Impression: Abdominal pain, Ovarian cyst Patient Disposition: Home Condition: Stable Instructions: Antibiotic Form, Abdominal Pain (ED) Additional Instructions: Your found have a right sided ovarian cyst. Please follow-up with your OBGYN for further management. If you develop severe right lower quadrant pain, intractable nausea vomiting or any new or worsening symptoms please return to the ED for re-evaluation. You may use Tylenol and/or Ibuprofen for pain control at home. Patient Language: Faroese Prescriptions: No Action norgestimate-ethinyl estradiol [Sprintec (28)] 0.25-35 mg-mcg tablet 1 tablet PO DAILY cholecalciferol (vitamin D3) [Vitamin D3] 125 mcg (5,000 unit) Tablet 125 mcg PO DAILY berberine chloride 500 mg Capsule 500 mg PO BID levofloxacin 750 mg tablet 750 mg PO DAILY 6 Days Qty: 6 0RF Follow-up/Referrals: Brett Sy DO [Physician] - (primary care provider) UNKNOWN,DOCTOR [Primary Care Provider] -
[2025-04-04 05:38] VITALS: BP 137/88; PULSE 97; RESP 16; O2SAT 97
== END 2025-04-04 05:48 | disposition home or self-care (01) ==
PROVIDERS: Emergency Provider Registered Nurse
DX: N83.209 Unspecified ovarian cyst, unspecified side (principal)
CPT/HCPCS: 36415; 74177; 80053; 81003; 81025; 83605; 83690; 85025; 85610; 85730; 93005; 99284; Q9967

== ENCOUNTER 2025-07-12 14:33 | Emergency (ER) | payer OTHER, SELFPAY ==
--- OUTSIDE RECORDS SUMMARY | 2025-07-12 14:35 | XMS_ITS | Encounter Summary ---
Author Organization [facility] Address [facility] [place] [address] Care Team Providers Care Cdl Company Driver Name Role Phone Pablo Humphries MD Primary Care Provider [phone] Encounter Details Date Type Department Care Team (Late st Contact Info) Description 03/31/2019 Abstract [facility] [address] [facility] [place] [address] , Generic Conversion, Social History Tobacco Use Types Packs/Day Years Used Date Smoking Tobacco: Never Assessed Comments Unknown Sex and Gender Information Value Date Recorded Sex Assigned at Not on file Legal Sex Female 7:28 PM CDT Gender Identity Not on file Sexual Orientation Not on file documented as of this encounter Plan of Treatment Not on file documented as of this encounter Visit Diagnoses Not on filedocumented in this encounter Care Teams Cdl Company Driver Relationship Specialty Start Date End Date Pablo Humphries MD [address] [facility] [address] [place] [address] PCP - General PEDIATRICS 03/24/19 documented as of this encounter
--- OUTSIDE RECORDS SUMMARY | 2025-07-12 14:35 | XMS_ITS | Clinical Summary ---
Author Organization [facility] Address [address] [facility] [place] [address] Care Team Providers Care Ocean Biologist Name Role Phone Jaylene Tee NP Primary [...] on file Legal Sex Female 1:08 AM MOVIE EDITOR Gender Identity Not on file Sexual Orientation Not on file Last Filed Vital Signs Vital Sign Reading Time Taken Comments Blood Pressure 126/81 11/21/2022 1:54 PM MOVIE EDITOR Pulse 75 11/21/2022 1:54 PM MOVIE EDITOR Temperature 37 C (98.6 F) 11/21/2022 12:07 PM MOVIE EDITOR Respiratory Rate 18 11/21/2022 1:54 PM MOVIE EDITOR Oxygen Saturation 98% 11/21/2022 1:54 PM MOVIE EDITOR Inhaled Oxygen Concentration - - Weight 77.5 kg (170 lb 13.7 oz) 023 12:07 PM MOVIE EDITOR Height 152.4 cm (5') 11/21/2022 12:07 PM MOVIE EDITOR Body Mass Index 33.37 11/21/2022 12:07 PM MOVIE EDITOR Plan of Treatment Health Maintenance Due Date [...] Regular Well Visit/Exam 18-64 2019 Influenza Vaccine (#1) 2025 Pneumococcal vaccine <65 Aged Out No longer eligible based on patient's age to complete this topic [place] [address] [place] [address] [facility] MEDICAID [facility] Care Teams Ocean Biologist Relationship Specialty Start Date End Date Jaylene Tee NP PCP - General Family Medicine 11/21/22
--- OUTSIDE RECORDS SUMMARY | 2025-07-12 14:35 | XMS_ITS | Clinical Summary ---
Author Organization [facility] Address [address] [place] [address] Care Team Providers Care Environmental Protection Forester Name Role Phone Pablo Humphries MD Primary Care Provider [phone] Source Comments [facility] [employer],non-owned Affiliates and Associated Physician Practices is amultiple site organization consisting of ambulatory clinics and hospital sitesin [place], [place], [place] and [place]. This disclosure is being madepursuant to the Care Everywhere program and may not contain all information available regarding this patient. Last updated 18.[facility] [employer] Allergies No known active allergies Medications * [...] 36.9 C (98.4 F) 08/26/2020 1:28 PM PRODUCTION MAINTENANCE TECHNICIAN Respiratory Rate 27 08/19/2020 10:46 AM CDT Oxygen Saturation 99% 08/19/2020 10:46 AM CDT Inhaled Oxygen Concentration - - Weight 70.3 kg (155 lb) 08/26/2020 1:28 PM PRODUCTION MAINTENANCE TECHNICIAN Height 152.4 cm (5') 08/26/2020 1:28 PM PRODUCTION MAINTENANCE TECHNICIAN Body Mass Index 30.27 08/26/2020 1:28 PM PRODUCTION MAINTENANCE TECHNICIAN Plan of Treatment Health Maintenance Due Date Last Done Comments HIV SCREENING 2016 HPV VACCINE (1 - 3-dose series) 2016 CHLAMYDIA/GONORRHEA SCREENING 2017 MENINGOCOCCAL (Group B) VACC INE SHARED DECISION-MAKING (1 of 2 - Standard) 2017 HEPATITIS C SCREENING 11/09/2019 DTAP/TDAP/TD VACCINES (1 - Tdap) 2020 HEPATITIS B VACCINE (1 of 3 - 19+ 3-dose series) 2020 DEPRESSION SCREENING 10/24/2024 COVID-19 VACCINE (1 - 2023-2 5 season) 2025 INFLUENZA VACCINE (#1) 2025 ZOSTER VACCINE (1 of 2) 2051 HIB VACCINE Aged Out No longer eligi ble based on patient's age to complete this topic MENINGOCOCCAL GROUPS A/C/Y/W VACCINE Aged Out No longer eligible b ased on patient's age to complete this topic PNEUMOCOCCAL VACCINE Aged Out No long er eligible based on patient's age to complete this topic Insurance [facility] Care Teams Environmental Protection Forester Relationship Specialty Start Date End Date Pablo Humphries MD [facility] [address] [address] PCP - General 07/24/20
--- OUTSIDE RECORDS SUMMARY | 2025-07-12 14:35 | XMS_ITS | Clinical Summary ---
Author Organization [facility] Address [address] [place] [address] Care Team Providers Care Loop Cutter Name Role Phone Pablo Humphries MD Primary Care Provider [phone] Social History Tobacco Use Types Packs/Day Years Used Date Smoking Tobacco: Never Assessed Comments Unknown Sex and Gender Information Value Date Recorded Sex Assigned at Not on file Legal Sex Female 7:28 PM CDT Gender Identity Not on file Sexual Orientation Not on file Plan of Treatment Health Maintenance Due Date Last Done Comments Cervical Cancer Screening Pap Smear (Age 21 to 29) Every 3 Years 2001 Cervical Cancer Screening 2001 Annual Physical 2004 Meningococcal B Vaccine (1 of 2 - Standard) 2017 Hepatitis C 2019 DTaP, Tdap and Td Vaccines (4 - Tdap) 2020 06/21/2003, 06/01/2002, 04/06/2002, Additional history exists Hepatitis B Vaccines (1 of 3 - 19+ 3-dose series) 2020 COVID-19 Vaccine ( season) 2025 HPV Vaccines Completed 04/23/2014, 01/23/2013 Meningococcal Vaccine Completed 04/03/2018, 013 Pneumococcal Vaccine: Pediatrics (0 to 5 Years) and At-Risk Patients (6 to 49 Years) Aged Out No longer eligible based on patient's age to complete this topic RSV Immunizations Under 20 Months Aged Out No longer eligible based on patient's age to complete this topic Insurance [employer] Care Teams Loop Cutter Relationship Specialty Start Date End Date Pablo Humphries MD [address] [facility] [address] [place] [address] PCP - General PEDIATRICS 03/24/19
[2025-07-12 14:39] VITALS: BP 128/91; PULSE 102; RESP 18; TEMP 36.6; O2SAT 99
--- NOTE | 2025-07-12 15:24 | ED.FALL ---
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 Related Data Home Medications ?Medication ?Instructions ?Recorded ?Confirmed ?Last Taken ?Type berberine chloride 500 mg capsule 500 mg PO BID 07/26/24 07/26/24 07/25/24 History cholecalciferol (vitamin D3) 125 125 mcg PO DAILY 07/26/24 07/26/24 07/25/24 History mcg (5,000 unit) tablet (Vitamin D3) norgestimate 0.25 mg-ethinyl 1 tablet PO DAILY 07/26/24 07/26/24 07/25/24 History estradiol 0.035 mg tablet (Sprintec (28)) Allergies Allergy/AdvReac Type Severity Reaction Status Date / Time oxycodone Allergy Anaphylaxis Verified 07/12/25 14:39 Review of Systems Review of Systems: All systems reviewed & are unremarkable except as noted in HPI and below PMFSH Social History Social History Smoking status: Never smoker Alcohol intake: current Drinks per week: 1 Substance use: never Substance use type: does not use Do You Feel Safe in your Home?: Yes Lack of Transportation: No Lack of Food: Never True Current Housing: I Have Housing Concerned About Future Housing: No Difficulty Paying Gas/Electric Bills: No Difficulty Paying for Meds: No Currently Unemployed: No Education: Associate Degree Difficulty w/ Childcare or Family Care: No Spiritual care concerns: No Exam Narrative: General appearance: Well-developed, well-nourished Skin: Normal color Head: Normocephalic, nontraumatic Eyes: Clear conjunctiva ENT: Oropharynx normal, ears normal, nose normal Neck: Supple, nontender Chest and respiratory: Airway patent, no respiratory distress, no accessory muscle use Heart: Regular rate/rhythm Abdomen: Soft, nontender, no organomegaly, quiet bowel sounds Vascular: Normal peripheral pulses, normal capillary refill. Musculoskeletal: Normal range of motion, nontender back Neurologic: Alert and oriented ?3, PRICING STRATEGIST is normal as tested, no gross motor deficit Course Vital Signs Vital signs: Vital Signs Temperature 36.6 C 07/12/25 14:39 Pulse Rate 102 H 07/12/25 14:39 Respiratory Rate 18 07/12/25 14:39 Blood Pressure 128/91 H 07/12/25 14:39 Pulse Oximetry 99 07/12/25 14:39 Oxygen Delivery Room Air 07/12/25 14:39 Temperature 36.6 C 07/12/25 14:39 Pulse Rate 102 H 07/12/25 14:39 Respiratory Rate 18 07/12/25 14:39 Blood Pressure 128/91 H 07/12/25 14:39 Pulse Oximetry 99 07/12/25 14:39 Oxygen Delivery Room Air 07/12/25 14:39 MDM - Fall MDM Narrative Medical decision making narrative: Physical examination showing no bruises, no swelling, no deformity, no localized pain. Patient is able to walk without any complain or pain. No blood workup or imaging are required at this time. Patient is asymptomatic Differential Diagnosis Differential diagnosis: Likely other (Hip contusion) Critical Care Time Critical Care Time Critical Care Time: No Discharge Plan Discharge Clinical Impression: Contusion of hip, left Patient Disposition: Home Condition: Stable Instructions: Contusion in Adults (ED) Additional Instructions: Return if symptoms are worsening , call your family physician for appointment, take Tylenol, ibuprofen as as needed for aches and pain, continue home medications. Patient Language: Armenian Prescriptions: No Action norgestimate-ethinyl estradiol [Sprintec (28)] 0.25-35 mg-mcg tablet 1 tablet PO DAILY cholecalciferol (vitamin D3) [Vitamin D3] 125 mcg (5,000 unit) Tablet 125 mcg PO DAILY berberine chloride 500 mg Capsule 500 mg PO BID levofloxacin 750 mg tablet 750 mg PO DAILY 6 Days Qty: 6 0RF Follow-up/Referrals: PHYSICIAN NOT ON STAFF,NONSTAFF [Primary Care Provider]
--- OUTSIDE RECORDS SUMMARY | 2025-07-12 15:41 | XMS_ITS | Clinical Summary ---
Author Organization [facility] Address [address] [place] [address] Care Team Providers Care Recreation Attendant Supervisor Name Role Phone Pablo Humphries MD Primary Care Provider [phone] Source Comments [facility] [employer],non-owned Affiliates and Associated Physician Practices is amultiple site organization consisting of ambulatory clinics and hospital sitesin [place], [place], [place] and [place]. This disclosure is being madepursuant to the Care Everywhere program and may not contain all information available regarding this patient. Last updated 18.[facility] [employer] Allergies No known active allergies Medications * [...] 36.9 C (98.4 F) 08/26/2020 1:28 PM SHOP FITTER Respiratory Rate 27 08/19/2020 10:46 AM CDT Oxygen Saturation 99% 08/19/2020 10:46 AM CDT Inhaled Oxygen Concentration - - Weight 70.3 kg (155 lb) 08/26/2020 1:28 PM SHOP FITTER Height 152.4 cm (5') 08/26/2020 1:28 PM SHOP FITTER Body Mass Index 30.27 08/26/2020 1:28 PM SHOP FITTER Plan of Treatment Health Maintenance Due Date [...] patient's age to complete this topic Insurance [facility] Care Teams Recreation Attendant Supervisor Relationship Specialty Start Date End Date Pablo Humphries MD [facility] [address] [address] PCP - General 07/24/20
--- OUTSIDE RECORDS SUMMARY | 2025-07-12 15:41 | XMS_ITS | Encounter Summary ---
Author Organization [facility] Address [facility] [place] [address] Care Team Providers Care Automotive Technician Name Role Phone Pablo Humphries MD Primary Care Provider [phone] Encounter Details Date Type Department Care Team (Late st Contact Info) Description 03/31/2019 Abstract [facility] Conversion [address] [facility] [place] [address] , Generic Conversion, Social History Tobacco Use [...] on filedocumented in this encounter Care Teams Automotive Technician Relationship Specialty Start Date End Date Pablo Humphries MD [address] [facility] [address] [place] [address] PCP - General PEDIATRICS 03/24/19 documented as of this encounter
--- OUTSIDE RECORDS SUMMARY | 2025-07-12 15:41 | XMS_ITS | Clinical Summary ---
Author Organization [facility] Address [address] [place] [address] Care Team Providers Care Programming Coordinator Name Role Phone Pablo Humphries MD Primary Care Provider [phone] Social History Tobacco Use Types Packs/Day Years [...] complete this topic Insurance [employer] Care Teams Programming Coordinator Relationship Specialty Start Date End Date Pablo Humphries MD [address] [facility] [address] [place] [address] PCP - General PEDIATRICS 03/24/19
[2025-07-12 16:09] VITALS: BP 139/80; PULSE 98; RESP 20; TEMP 36.6; O2SAT 99
== END 2025-07-12 16:10 | disposition home or self-care (01) ==
PROVIDERS: Emergency Provider Emergency Medicine
DX: S70.02XA Contusion of left hip, initial encounter (principal); W01.0XXA Fall on same level from slipping, tripping and stumbling without subsequent striking against object, initial encounter
CPT/HCPCS: 99282